=== PATIENT | female | born 1960 | race African-American/Black ===

== ENCOUNTER 2021-02-03 00:20 | Emergency (ER) | payer MEDICAID, SELFPAY ==
[~2021-02-03] VITALS: Ht 167.6 cm; Wt 72.0 kg
[2021-02-03 00:32] VITALS: BP 143/75
== END 2021-02-03 00:40 | disposition left against medical advice (07) ==
LOC: ER 00:20
DX: M79.602 Pain in left arm (principal); Z53.21 Procedure and treatment not carried out due to patient leaving prior to being seen by health care provider